=== PATIENT | male | born 1965 | race Caucasian/White ===

== ENCOUNTER 2016-12-26 00:55 | Emergency (ER) | payer MEDICARE, OTHER ==
[~2016-12-26] VITALS: Ht 180.3 cm; Wt 90.0 kg
[2016-12-26 02:24] VITALS: RESP 18
[2016-12-26 02:35] VITALS: BP 100/54; PULSE 86; RESP 18; O2SAT 96
[2016-12-26] MEDS ORDERED: HALO5TAB PO (02:35)
[2016-12-26 02:46] LABS: AUTOMATED NEUTROPHIL # 8.1 TH/MM3 (1.8-7.7); BASOPHIL # 0.1 TH/MM3 (0-0.2); BASOPHIL % 0.6 % (0.0-2.0); EOSINOPHIL % 0.3 % (0.0-4.0); HEMATOCRIT 41.2 % (39.0-51.0); HEMO FLAGS DIFF FINAL; LYMPH % 19.8 % (9.0-44.0); LYMPHOCYTE # 2.4 TH/MM3 (1.0-4.8); MEAN CELL VOLUME 93.2 FL (80.0-100.0); MEAN CORPUSCULAR HGB CONC 34.3 % (32.0-36.0); MONO % 10.8 % (0.0-8.0); NEUT % 68.5 % (16.0-70.0); PLATELET COUNT 223 TH/MM3 (150-450); RED BLOOD COUNT 4.42 MIL/MM3 (4.50-5.90); WHITE BLOOD COUNT 11.9 TH/MM3 (4.0-11.0)
[2016-12-26 02:54] LABS: AMPHETAMINE, URINE NEG (NEG); BARBITURATES, URINE NEG (NEG); COCAINE, URINE POS (NEG)
--- NOTE | 2016-12-26 03:05 | PD ---
HPI Chief Complaint: Psychiatric Symptoms Time Seen by Provider: 02:57 Travel History International Travel<30 days: No Contact w/Intl Traveler<30days: No Traveled to known affect area: No History of Present Illness HPI This is a 51-year-old male who presents under Graves act initiated by the Police Department. The patient reports that he smoked some crack today. Since then he has been feeling like someone is following him with a gun with a laser beam. He was seen running around in the streets and screaming and someone called the police who then Graves acted him. He denies any suicidal or homicidal ideation. He denies any other drug use. He does report a history of schizophrenia for which he uses Haldol. He has no other complaints at this time. [facility] Past Medical History Arthritis: No Asthma: No Autoimmune Disease: No Blood Disorders: No Anxiety: Yes Depression: Yes Heart Rhythm Problems: No Cancer: No Cardiovascular Problems: No Chemotherapy: No Chest Pain: No Congestive Heart Failure: No COPD: Yes Cerebrovascular Accident: No Diabetes: No Diminished Hearing: No Endocrine: No GERD: Yes Glaucoma: No Genitourinary: No Headaches: No Hepatitis: Yes Hiatal Hernia: No Hypertension: No Immune Disorder: No Kidney Stones: No Musculoskeletal: No Neurologic: No Psychiatric: Yes ([facility] PREVIOUS ADMISSION) Reproductive: No Respiratory: No Migraines: No Myocardial Infarction: No Radiation Therapy: No Renal Failure: No Schizophrenia: Yes Seizures: No Sickle Cell Disease: No Sleep Apnea: No Ulcer: No ?: Not Past Surgical History Abdominal Surgery: No AICD: No Appendectomy: No Arteriovenous Shunt: No Cardiac Surgery: No Cholecystectomy: Yes Ear Surgery: Yes Endocrine Surgery: No Eye Surgery: Yes Genitourinary Surgery: No Gynecologic Surgery: No Insulin Pump: No Joint Replacement: No Oral Surgery: No Pacemaker: No Thoracic Surgery: No Other Surgery: No Social History Alcohol Use: No Tobacco Use: Yes (PACK TO 2 PACKS A DAY ) Substance Use: Yes (COCAINE/CRACK) Allergies-Medications (Allergen,Severity, Reaction): Coded Allergies: Latex (Verified Allergy, Severe, PT SAYS HE GETS RASH, 05/25/13) Reported Meds & Prescriptions Reported Meds & Active Scripts Active Reported Haloperidol 5 Mg Tab 5 Mg PO BID Review of Systems Except as stated in HPI: all other systems reviewed are Neg Physical Exam Narrative GENERAL: Well-developed well-nourished male in no acute distress. SKIN: Warm and dry. HEAD: Atraumatic. Normocephalic. EYES: Pupils equal and round. No scleral icterus. No injection or drainage. ENT: No nasal bleeding or discharge. Mucous membranes pink and moist. NECK: Trachea midline. No JVD. CARDIOVASCULAR: Regular rate and rhythm. No murmur appreciated. RESPIRATORY: No accessory muscle use. Clear to auscultation. Breath sounds equal bilaterally. GASTROINTESTINAL: Abdomen soft, non-tender, nondistended. Hepatic and splenic margins not palpable. MUSCULOSKELETAL: No obvious deformities. No clubbing. No cyanosis. No edema. NEUROLOGICAL: Awake and alert. No obvious cranial nerve deficits. Motor grossly within normal limits. Normal speech. PSYCHIATRIC: Appropriate mood and affect Data Data Last Documented VS Vital Signs Date Time Temp Pulse Resp B/P Pulse Ox O2 Delivery O2 Flow Rate FiO2 12/26/16 02:35 86 18 100/54 96 Room Air Orders Complete Blood Count With Diff (12/26/16 02:32) Comprehensive Metabolic Panel (12/26/16 02:32) Alcohol (Ethanol) (12/26/16 02:32) Tylenol (Acetaminophen) (12/26/16 02:32) Salicylates (Aspirin) (12/26/16 02:32) Psych Screen (12/26/16 02:32) Drug Screen, Random Urine (12/26/16 02:32) Labs Laboratory Tests Test 12/26/16 12/26/16 02:20 02:25 Urine Opiates Screen NEG Urine Barbiturates Screen NEG Urine Amphetamines Screen NEG Urine Benzodiazepines Screen NEG Urine Cocaine Screen POS Urine Cannabinoids Screen POS White Blood Count 11.9 TH/MM3 Red Blood Count 4.42 MIL/MM3 Hemoglobin 14.1 GM/DL Hematocrit 41.2 % Mean Corpuscular Volume 93.2 FL Mean Corpuscular Hemoglobin 32.0 PG Mean Corpuscular Hemoglobin 34.3 % Concent Red Cell Distribution Width 13.0 % Platelet Count 223 TH/MM3 Mean Platelet Volume 8.4 FL Neutrophils (%) (Auto) 68.5 % Lymphocytes (%) (Auto) 19.8 % Monocytes (%) (Auto) 10.8 % Eosinophils (%) (Auto) 0.3 % Basophils (%) (Auto) 0.6 % Neutrophils # (Auto) 8.1 TH/MM3 Lymphocytes # (Auto) 2.4 TH/MM3 Monocytes # (Auto) 1.3 TH/MM3 Eosinophils # (Auto) 0.0 TH/MM3 Basophils # (Auto) 0.1 TH/MM3 CBC Comment DIFF FINAL Differential Comment Sodium Level 144 MEQ/L Potassium Level 3.8 MEQ/L Chloride Level 107 MEQ/L Carbon Dioxide Level 30.1 MEQ/L Anion Gap 7 MEQ/L Blood Urea Nitrogen 16 MG/DL Creatinine 1.24 MG/DL Estimat Glomerular Filtration 62 ML/MIN Rate Random Glucose 98 MG/DL Calcium Level 9.2 MG/DL Total Bilirubin 0.7 MG/DL Aspartate Amino Transf 55 U/L (AST/SGOT) Alanine Aminotransferase 35 U/L (ALT/SGPT) Alkaline Phosphatase 68 U/L Total Protein 7.3 GM/DL Albumin 4.2 GM/DL Salicylates Level 2.2 MG/DL Acetaminophen Level LESS THAN 2.0 MCG/ML Ethyl Alcohol Level LESS THAN 3 MG/DL MDM Medical Decision Making Medical Screen Exam Complete: Yes Emergency Medical Condition: Yes Medical Record Reviewed: Yes Differential Diagnosis Substance-induced disorder, acute psychosis, schizophrenia, schizoaffective disorder Narrative Course 51-year-old male presents under [employer] act for psychiatric evaluation. Mental health screening discussed with the patient. Psychiatric screen ordered. Drug screen is positive for cocaine and cannabinoids. He is medically cleared for psychiatric disposition. Diagnosis Primary Impression: Medical clearance for psychiatric admission Sami Courtney Dec 26, 2016 03:05
[2016-12-26 03:12] LABS: ANION GAP 7 MEQ/L (5-15); AST (GOT) 55 U/L (15-37); BICARBONATE 30.1 MEQ/L (21.0-32.0); BLOOD UREA NITROGEN 16 MG/DL (7-18); CHLORIDE 107 MEQ/L (98-107); GLOMERULAR FILTRATION RATE 62 ML/MIN (>89); POTASSIUM 3.8 MEQ/L (3.5-5.1); SODIUM (NA) 144 MEQ/L (136-145)
[2016-12-26 03:15] LABS: ACETAMINOPHEN LESS THAN 2.0 MCG/ML (10.0-30.0); ALKALINE PHOSPHATASE 68 U/L (45-117); ALT (GPT) 35 U/L (12-78); TOTAL BILIRUBIN ADULT 0.7 MG/DL (0.2-1.0)
[2016-12-26 06:00] VITALS: BP 136/54; PULSE 92; RESP 19; O2SAT 97
--- NOTE | 2016-12-26 10:32 | MB ---
cc: SAMANTHA CATHERINE DATE OF CONSULTATION: 12/26/2016 PHYSICIAN REQUESTING CONSULTATION Emergency Department REASON FOR CONSULTATION Graves Act. HISTORY OF PRESENT ILLNESS Mr. Garrido is a 51-year-old male with a history of schizoaffective disorder who presents under a Graves Act from the [place] [employer] alleging that the patient was running down the street saying someone was trying to kill him. Reviewing the electronic medical record, I note the patient was admitted here most recently in April [address] Duran. Patient seen and examined. Chart reviewed. Case discussed with nurse in the J-pod. Per nursing staff, the patient's behavior has been appropriate overnight and there has been no evidence of any suicidal or homicidal behavior while under observation in the J-pod. Of note also, the patient's urine toxicology was positive for cocaine and cannabinoids. This morning, the patient is clinically sober. He says that he had been clean from substance use for quite awhile but when he does use substances, his psychosis acts up. His thought process this morning is linear and logical. He denies any audiovisual hallucinations. He does not presently feel like anyone is trying to kill him, nor can I elicit any other delusional beliefs including but not limited to paranoia, ideas of reference or thought insertion or withdrawal. Mood is stable and the patient denies low mood, hopeless feelings, worthless feelings or morbid guilt. He denies elevated mood or racing thoughts or associated symptoms of hypomania / diane. Sleep has been somewhat poor while he has been abusing substances. He denies any suicidal or homicidal ideation, intent or plan on direct questioning. The remainder of the psychiatric ROS is negative. The patient is requesting discharge from the psychiatric emergency room this morning. With the patient's permission, I have obtained collateral from the patient's father, Moustapha Garrido, at [phone]. Mr. Garrido notes that the patient has a history of psychotic and substance use disorder and that the patient has been clean from substances lately. Mr. Garrido has no safety concerns if the patient were to be discharged from the psychiatric emergency room today. He does not feel that the patient represents a risk of harm to self or others based on his recent knowledge of the patient. PAST PSYCHIATRIC HISTORY The patient reports he was diagnosed with schizoaffective disorder in 1991. He follows with Dr. De Los Santos and is prescribed Haldol 2.5 mg twice daily. He reports good compliance with medications and says that he has an adequate supply of these. His last psychiatric admission was a year and a half ago in [place]. He denies a history of suicide attempts. No reported history of violence. FAMILY HISTORY The patient does elude to some family history of mental illness but he is unsure of the diagnosis. CHEMICAL DEPENDENCY HISTORY The patient reports that he had been abstinent from substances of abuse for quite some time but relapsed within the last day or two to cocaine, cannabis and alcohol. He plans to resume his efforts at sobriety and says that he has done well with a voodoo-based abstinence program. SOCIAL HISTORY The patient reports he lives with his father and brother. He is single with no children. He has 2 years of college. He is Disabled. Denies any or legal history. Denies any access to guns or firearms. He does endorse adventism / spiritual beliefs. PAST MEDICAL HISTORY The patient reports a history of gallbladder disease. REVIEW OF SYSTEMS No reported headache, vision or hearing changes, chest pain, shortness of breath, bowel or bladder issues. No other physical complaints. PHYSICAL EXAMINATION No temperature was obtained. Pulse 92, respirations 19, blood pressure 136/54, pulse oximetry 97% on room air. Physical examination completed by the ED provider. On my examination today, the patient appears to be well-nourished and well-developed and in no acute physical distress. He does have some oral lingual dyskinesias but no other motoric abnormalities were noted. LABORATORY DATA Laboratory is reviewed: CBC is significant for a mild leukocytosis at 11.9. CMP is significant for mildly decreased GFR at 62 and mildly elevated AST at 55. Toxicology is positive for cocaine and cannabinoids as I said. Alcohol level was undetectable. MENTAL STATUS EXAMINATION The patient is in a hospital gown. He is well-groomed. He is maintaining basic hygiene. He is awake and alert and oriented x3. No evidence of delirium. Motor exam as above. Speech is within normal limits for rate, tone and volume. Language and fund of knowledge seem at least average. Mood is fair and affect is somewhat blunted. Thought process linear. No loosening of associations. No evident delusions. Denies audiovisual hallucinations. Denies suicidal or homicidal ideation, intent or plan. Insight and judgment are fair. ASSESSMENT AND PLAN 1. Schizoaffective disorder, F25.0. 2. Polysubstance abuse F19.10. This is a 51-year-old male with psychiatric history as detailed above, who presents under a Graves Act. On my examination this morning, the patient is clinically sober. He apparently had a mild psychotic relapse in the setting of substance abuse. Presently there is no evidence of any unstable mood, anxiety or psychotic disorder in this patient at this time. He is denying suicidal or homicidal ideation. He appears to be attending to his basic needs. I have obtained reassuring collateral from the patient's father. Putting the above information together, I settlement technician the patient does not presently meet Graves Act criteria. I have lifted the Graves Act. I have encouraged the patient to remain adherent with his psychotropic medications and follow-up with his outpatient psychiatric provider. I have counseled the patient to abstain from substances of abuse. I have counseled the patient regarding warning signs for need to return to psychiatric emergency room as part of a general safety plan. The patient is psychiatrically clear for discharge from the ED. Thank you very much for this consultation. Samantha HALL /9:32 AM 10:05 AM [facility]
== END 2016-12-26 11:58 | disposition home or self-care (01) ==
LOC: NEPB 00:55 → NEPJ 11:58
DX: F25.9 Schizoaffective disorder, unspecified (principal)
CPT/HCPCS: 80053; 80307; 85025; 99285